=== PATIENT | female | born 1955 | race Caucasian/White ===

== ENCOUNTER → 2021-04-16 10:50 | Outpatient (CLI) | payer OTHER, SELFPAY ==
[2021-04-16 10:57] LABS: Bacteria Urine None Seen; WBC Urine None Seen (0-5/HPF)
[2021-04-16 11:13] LABS: Hematocrit 44.1 % (36-46); Hemoglobin 14.5 g/dL (12.0-16.0); Mean Corpuscular HGB Conc 32.8 % (30-36); Mean Corpuscular Hemoglobin 30.8 PG (26-34); Mean Corpuscular Volume 93.8 fL (80-100); Platelet Count 132 X10^3/uL (150-400); Red Cell Distribution Width 13.9 % (11.6-14.8); White Blood Cell Count 4.9 X10^3/uL (4.5-11.0)
[2021-04-16 11:15] LABS: Appearance Urine UA CLEAR; Bilirubin Urine UA NEGATIVE (NEGATIVE); Color Urine UA YELLOW; Glucose Urine UA NEGATIVE (Negative); Ketones Urine UA NEGATIVE (NEGATIVE); Leukocyte Esterase Urine UA NEGATIVE (NEGATIVE); Nitrite Urine UA NEGATIVE (Negative); Occult Blood Urine UA 1+ (Negative); Protein Urine UA NEGATIVE (Negative); Specific Gravity Urine UA <=1.005 (1.000-1.035); Urobilinogen Urine UA 0.2 E.U./dL (0.2)
[2021-04-16 11:28] LABS: Alanine Aminotransferase 18 IU/L (<35); Albumin 4.4 g/dL (3.5-5.0); Albumin Globulin Ratio 1.7 (1.0-2.8); Alkaline Phosphatase 46 U/L (38-126); Aspartate Aminotransferase 25 IU/L (14-36); BUN Creatinine Ratio 26.9 (6-22); Bilirubin Total 1.1 mg/dL (0.2-1.3); Blood Urea Nitrogen 14 mg/dL (7-17); Calcium 9.4 mg/dL (8.4-10.2); Carbon Dioxide 27 mmol/L (22-32); Chloride 105 mmol/L (98-107); Cholesterol 258 mg/dL (140-199); Estimated Glomerular Filt Rate > 60.0 mL/min (>60); Globulin 2.6 g/dL (1.7-4.1); Glucose 97 mg/dL (80-110); HDL Cholesterol 93 mg/dL (40-60); HEMOLYSIS < 15 (0-50); LDL Cholesterol Calculated 144 mg/dL (<100); Potassium 4.2 mmol/L (3.4-5.1); Sodium 137 mmol/L (137-145); Triglycerides 106 mg/dL (35-150)
[2021-04-16 11:37] LABS: Amorphous Sediment Urine 1+; Culture Indicated Urine Cult Not Indicated; RBC Urine 0-1/HPF (0-5/HPF)
[2021-04-16 12:34] LABS: TSH w/ Reflex to FT4 1.25 uIU/mL (0.47-4.68)
[2021-04-17 18:36] LABS: SS A Ro Sjogrens Antibody < 0.2 AI (0.0-0.9); SS B La Sjogrens Antibody < 0.2 AI (0.0-0.9)
== END ==
PROVIDERS: PCP Registered Nurse Diabetes Educator; Referring Provider Registered Nurse Diabetes Educator; Visit Provider Registered Nurse Diabetes Educator
DX: Z00.00 Encounter for general adult medical examination without abnormal findings (principal); R68.2 Dry mouth, unspecified; R30.0 Dysuria
CPT/HCPCS: 36415; 80053; 80061; 81001; 84443; 85027; 86235

== ENCOUNTER → 2021-04-25 10:34 | Outpatient (CLI) | payer OTHER, SELFPAY ==
[2021-04-28 10:16] LABS: H. Pylori Antigen Stool Negative (Negative)
== END ==
PROVIDERS: PCP Registered Nurse Diabetes Educator; Referring Provider Registered Nurse Diabetes Educator; Visit Provider Registered Nurse Diabetes Educator
DX: R10.13 Epigastric pain (principal)
CPT/HCPCS: 87338

== ENCOUNTER → 2021-06-04 11:22 | Outpatient (CLI) | payer OTHER, SELFPAY ==
[2021-06-05 14:36] LABS: Interpretation Negative (Negative)
== END ==
PROVIDERS: PCP Registered Nurse Diabetes Educator; Referring Provider Registered Nurse Diabetes Educator; Visit Provider Registered Nurse Diabetes Educator
DX: R10.13 Epigastric pain (principal)
CPT/HCPCS: 83013

== ENCOUNTER → 2021-09-30 15:06 | Outpatient (CLI) | payer OTHER, SELFPAY ==
--- NOTE | 2021-09-30 15:08 | DI.MG.S_ITS ---
BILATERAL DIGITAL SCREENING MAMMOGRAM 3D/2D WITH CAD: 09/30/2021 CLINICAL: Routine screening. Baseline exam. No prior exams were available for comparison. The tissue of both breasts is heterogeneously dense. This may lower the sensitivity of mammography. Current study was also evaluated with a Computer Aided Detection (CAD) system. No significant masses, calcifications, or other findings are seen in either breast. IMPRESSION: NEGATIVE There is no mammographic evidence of malignancy. A 1 year screening mammogram is recommended. This exam was interpreted at Station ID: [id number]. NOTE: For mammograms, a report in lay terms will be sent to the patient. Approximately 15% of breast malignancies will not be visualized mammographically. In the management of a palpable breast mass, a negative mammogram must not discourage biopsy of a clinically suspicious lesion. Electronically Signed By: Anderson solitario/philip:10/01/2021 07:44:53 letter sent: Normal Exam ACR BI-RADS Category 1: Negative 3341F
== END ==
PROVIDERS: PCP Registered Nurse Diabetes Educator; Referring Provider Registered Nurse Diabetes Educator; Visit Provider Registered Nurse Diabetes Educator
DX: Z12.31 Encounter for screening mammogram for malignant neoplasm of breast (principal)
CPT/HCPCS: 77063; 77067

== ENCOUNTER 2022-06-07 10:30 | Emergency (ER) | payer OTHER, SELFPAY ==
[2022-06-07 10:54] VITALS: BP 126/80; PULSE 80; RESP 16; TEMP 36.5; O2SAT 99; BMI 19.1
--- NOTE | 2022-06-07 11:01 | DI.RAD.S_ITS ---
PROCEDURE: XR LUMBAR SPINE 2-3V INDICATIONS: back pain TECHNIQUE: 3 views of the lumbar spine were acquired. COMPARISON: None. FINDINGS: Bones: 5 [id number] vertebrae are present. There is normal bony alignment. No vertebral body compression fractures. No suspicious bony lesions. The disc heights are well preserved. Facet arthropathy is seen, which is worst inferiorly. Soft tissues: Overlying bowel gas pattern is normal. No suspicious soft tissue calcifications. IMPRESSION: No acute abnormality is seen by plain film. Lower lumbar spine facet arthropathy is seen. If it would be helpful for clinical management decision making, please consider a dedicated, scheduled lumbar spine MRI for further evaluation (assuming that there is no contraindication). Dictated by: Eduardo Argueta M.D. on 06/07/2022 at 10:31 Approved by: Eduardo Argueta M.D. on 06/07/2022 at 10:32
[2022-06-07 12:47] LABS: Appearance Urine UA CLEAR; Bilirubin Urine UA NEGATIVE (NEGATIVE); Color Urine UA YELLOW; Glucose Urine UA NEGATIVE (Negative); Ketones Urine UA NEGATIVE (NEGATIVE); Leukocyte Esterase Urine UA 1+ (NEGATIVE); Nitrite Urine UA NEGATIVE (Negative); Occult Blood Urine UA TRACE-LYSED (Negative); Protein Urine UA NEGATIVE (Negative); Specific Gravity Urine UA <=1.005 (1.000-1.035); Urobilinogen Urine UA 0.2 E.U./dL (0.2)
[2022-06-07 13:01] LABS: RBC Urine None Seen (0-5/HPF); WBC Urine None Seen (0-5/HPF); pH Urine UA 5.5 (4.5-8.0)
[2022-06-07 13:02] LABS: Bacteria Urine None Seen; Culture Indicated Urine Specimen Cultured
--- NOTE | 2022-06-07 13:09 | ED_ITS ---
HPI - Back Pain/Injury <Brien Rene PA-C - Last Filed: 06/12/22 12:10> General Chief Complaint: Back Pain/Injury Stated Complaint: injured lower back on Time Seen by Provider: 06/07/22 12:04 Source: patient History of Present Illness HPI Narrative: Patient is a 66-year-old female who presents to the emergency room today with complaint of low back pain that started on . States she was lifting a 40 lb current corgi she was bending and hurt her back. Since the back pain is mostly on the left side but she can feel it across the entire low back area. Describes the pain as being a dull ache initially but has worsened now. States the pain is worse with bending and better with sitting in a chair reclining lifting her legs. States the pain at its worst is about a 10 in his best he is about a 7. Patient denies any urinary related concerns. Related Data Home Medications Medication Instructions Recorded Confirmed pantoprazole PO 06/11/22 06/11/22 Previous Rx's Medication Instructions Recorded conjugated estrogens 0.625 mg/gram 0.625 mg vaginal DAILY #30 grams 11/13/20 vaginal cream nitrofurantoin macrocrystal 100 mg 100 mg PO BID #10 caps 06/07/22 capsule cyclobenzaprine 10 mg tablet 5 mg PO BEDTIME PRN muscle spasm 06/11/22 #30 tabs meloxicam 7.5 mg tablet 7.5 mg PO BID PRN pain (scale 06/11/22 score 1-3) #30 tabs methocarbamol 750 mg tablet 750 mg PO Q6H PRN muscle spasm #30 06/11/22 tabs Allergies Allergy/AdvReac Type Severity Reaction Status Date / Time No Known Drug Allergies Allergy Verified 06/11/22 09:30 Review of Systems <Brien Rene PA-C - Last Filed: 06/12/22 12:10> Review of Systems Narrative: R.O.S.: General: No fever, chills or fatigue. Cardiovascular: No chest pain or palpitations Respiratory: No S.O.B. HEENT: No congestion, ear pain, rhinorrhea, sore throat or tinnitus Gastrointestinal: No nausea or vomiting : No urinary concerns Skin: No rash or associated abnormalities Musculoskeletal: Low back pain? Neurological: Awake, alert and in not apparent distress. No Headaches, changes in vision or other related neurological concerns. Patient History <Brien Rene PA-C - Last Filed: 06/12/22 12:10> Medical History Atrophic vulvovaginitis Elevated BP without diagnosis of hypertension Elevated LDL cholesterol level Hearing loss Helicobacter pylori (H. pylori) (~2015) Thrombocytopenia Thrombocytopenia Vision disorder Surgical History Anesthesia History of toe surgery (~2008) Family History Mother Hypertension Brother Cancer Hypertension Social History Smoking Status: Never smoker Smoking Status: Never smoker alcohol intake frequency: 0-2 drinks per day Substance Use Type: does not use Exam <Brien Rene PA-C - Last Filed: 06/12/22 12:10> Narrative Exam Narrative: Physical Exam: ? General: normal appearance, well developed, well nourished, alert, and awake. Not in acute distress. ? Head: Normocephalic, no lesions. Chest: Lungs CTAB, no rales, rhonchi or wheezes. ?? Heart: RRR, no murmurs, rubs or gallops. Eyes: PERRLA, EOM's full, conjunctivae clear. ? Neuro: Physiological, no localizing findings, CN3-12 intact. ?? Extremities: Warm, well perfused, FROM, no deformities, no edema. ? Back: Patient does not have any paraspinal tenderness in the cervical thoracic or lumbar spine. Patient has good tiptoe walk intact tandem walk good heel walk. Patient does however has complaint of tenderness palpating over her superior right and left gluteal areas. ? Skin: Normal, no rashes, no lesions noted. ?? PSYCHIATRIC: The mood is good, no blunted affect. Speech is clear. Thought process is linear, thought content is appropriate. The voice is without significant inflection. Gastrointestinal: Soft; NT; ND; Pos BS with Neg. rebound tenderness. No scars or major deformities noted on Visual Inspection. Initial Vital Signs Initial Vital Signs: Vital Signs Temperature 97.7 F 06/07/22 10:54 Pulse Rate 80 06/07/22 10:54 Respiratory Rate 16 06/07/22 10:54 Blood Pressure 126/80 06/07/22 10:54 Pulse Oximetry 99 06/07/22 10:54 Oxygen Delivery Method 06/07/22 10:54 <Alber Hernandez DO - Last Filed: 06/12/22 21:33> Initial Vital Signs Initial Vital Signs: Vital Signs Temperature 97.7 F 06/07/22 10:54 Pulse Rate 80 06/07/22 10:54 Respiratory Rate 16 06/07/22 10:54 Blood Pressure 126/80 06/07/22 10:54 Pulse Oximetry 99 06/07/22 10:54 Oxygen Delivery Method 06/07/22 10:54 Course <Brien Rene PA-C - Last Filed: 06/12/22 12:10> Orders Ordered: Discontinued Medications Ketorolac Tromethamine (Ketorolac 30 Mg/Ml Vial) 15 mg IM NOW ONE Stop: 06/07/22 13:24 Last Admin: 06/07/22 13:33 Dose: 15 mg Documented By: MAURICIO Vital Signs Vital signs: Vital Signs - 8 hr 06/07/22 10:54 Temperature 97.7 F Pulse Rate 80 Respiratory Rate 16 Blood Pressure 126/80 Pulse Oximetry 99 Oxygen Delivery Method Room Air <Alber Hernandez DO - Last Filed: 06/12/22 21:33> Orders Ordered: Discontinued Medications Ketorolac Tromethamine (Ketorolac 30 Mg/Ml Vial) 15 mg IM NOW ONE Stop: 06/07/22 13:24 Last Admin: 06/07/22 13:33 Dose: 15 mg Documented By: MAURICIO Vital Signs Vital signs: Vital Signs - 8 hr 06/07/22 10:54 Temperature 97.7 F Pulse Rate 80 Respiratory Rate 16 Blood Pressure 126/80 Pulse Oximetry 99 Oxygen Delivery Method Room Air MDM - Back Pain/Injury <Brien Rene PA-C - Last Filed: 06/12/22 12:10> Lab Data Labs: Lab Results 06/07/22 Range/Units 12:26 Urine Color Yellow Urine Appearance Clear Urine pH 5.5 (4.5-8.0) Ur Specific [place] <=1.005 (1.000-1.035) Urine Protein Negative (Negative) Urine Glucose (UA) Negative (Negative) g/dL Urine Ketones Negative (NEGATIVE) Urine Occult Blood Trace-lysed (Negative) Urine Nitrate Negative (Negative) Urine Bilirubin Negative (NEGATIVE) Urine Urobilinogen 0.2 (0.2) E.U./dL Ur Leukocyte Esterase 1+ H (NEGATIVE) Urine RBC None seen (0-5/HPF) Urine WBC None seen (0-5/HPF) Urine Bacteria None seen (None) Ur Culture Indicated? Specimen cultured Imaging Data Extremity x-ray #1: Radiologist's Impression: [address] [address] XRay Report Signed Patient: Bre River MR#: [id number] : 1955 Acct:[id number] Age/Sex: 66 / F Date of Service: 06/07/22 Loc: ED Accession Number: [id number] ?? Procedure: XR lumbar spine 2-3V Ordering Provider: Salina Pike D.O. PROCEDURE:? XR LUMBAR SPINE 2-3V ? INDICATIONS:? back pain ? TECHNIQUE:? 3 views of the lumbar spine were acquired.? ? COMPARISON:? None. ? FINDINGS:? ? Bones:? 5 dol-hmb-zbtgksq vertebrae are present.? There is normal bony alignment.? No vertebral body compression fractures.? No suspicious bony lesions.? ? The disc heights are well preserved.? Facet arthropathy is seen, which is worst inferiorly. ? Soft tissues:? Overlying bowel gas pattern is normal.? No suspicious soft tissue calcifications.? ? ? IMPRESSION:? No acute abnormality is seen by plain film. ? Lower lumbar spine facet arthropathy is seen. ? If it would be helpful for clinical management decision making, please consider a dedicated, scheduled lumbar spine MRI for further evaluation (assuming that there is no contraindication).? ? ? Dictated by: Eduardo Argueta M.D. on 06/07/2022 at 10:31 ? ? Approved by: Eduardo Argueta M.D. on 06/07/2022 at 10:32 ? MDM Narrative Medical decision making narrative: Presents to the emergency room complaint of back pain after lifting dog and had an incidental finding of a possible urinary tract infection. X-ray was negative for fracture. Toradol was administered in the emergency room and muscle relaxers and antibiotics were issued for the back pain and urinary tract infection. <Alber Hernandez DO - Last Filed: 06/12/22 21:33> Lab Data Labs: Lab Results 06/07/22 Range/Units 12:26 Urine Color Yellow Urine Appearance Clear Urine pH 5.5 (4.5-8.0) Ur Specific [place] <=1.005 (1.000-1.035) Urine Protein Negative (Negative) Urine Glucose (UA) Negative (Negative) g/dL Urine Ketones Negative (NEGATIVE) Urine Occult Blood Trace-lysed (Negative) Urine Nitrate Negative (Negative) Urine Bilirubin Negative (NEGATIVE) Urine Urobilinogen 0.2 (0.2) E.U./dL Ur Leukocyte Esterase 1+ H (NEGATIVE) Urine RBC None seen (0-5/HPF) Urine WBC None seen (0-5/HPF) Urine Bacteria None seen (None) Ur Culture Indicated? Specimen cultured Discharge Plan Departure Patient Disposition: Home Clinical Impression: Acute low back pain, Acute UTI Instructions: DI for Low Back Pain, DI for Urinary Tract Infection (UTI), DI for Back Strain or Sprain Activity Restrictions/Additional Instructions: *You have been diagnosed with acute low back pain status post lifting your dog and an incidental finding of a possible urinary tract infection. I have ordered and nonsteroidal anti-inflammatory medication for you received here in the emergency room and I suggested also trial [id number]-[id number]-[id number] ibuprofen or naproxen for your inflammatory condition. I have also ordered muscle relaxer for your back pain and antibiotics for urinary tract infection. Please return to the emergency room if any emergent concerns arise please report to primary care provider for any nonemergent concerns arise. [ ] *What to do: *Please continue to take your regular medications as directed. [x] New medication prescriptions sent to your pharmacy: [ ] [ ] New medication written as a paper prescription [ ] No new medications given *Please follow up with your primary care provider in 2-3 days, call for an appointment. Let them know you were seen in the Emergency Department and that we ask that you be seen in follow up. We will electronically transmit a record of today's note if your PCP is in our system *If you do not have a primary care provider please contact the [facility] Resource line at [phone]. They will ask some questions about your medical history and help get you set up with a doctor in the community. *Return to Emergency Department if you should have any new, worsening or concerning symptoms, such as [fever greater than 101 F, shaking chills, worsening pain, persistent vomiting or other bothersome symptoms] Prescriptions: New nitrofurantoin macrocrystal 100 mg capsule 100 mg PO BID Qty: 10 0RF Rx Instructions: must administer with a meal/food No Action conjugated estrogens 0.625 mg/gram cream 0.625 mg vaginal DAILY Qty: 30 0RF Rx Instructions: Use daily for two weeks and then change to twice weekly pantoprazole PO meloxicam 7.5 mg tablet 7.5 mg PO BID PRN (Reason: pain (scale score 1-3)) Qty: 30 1RF cyclobenzaprine 10 mg tablet 5 mg PO BEDTIME PRN (Reason: muscle spasm) Qty: 30 0RF Rx Instructions: If ineffective, may increase to 1 tab at bedtime as needed methocarbamol 750 mg tablet 750 mg PO Q6H PRN (Reason: muscle spasm) Qty: 30 2RF Rx Instructions: For daytime use Referrals: David Saavedra ARNP [Primary Care Provider] - Visit Report Forms: Patient Portal/API <Alber Hernandez DO - Last Filed: 06/12/22 21:33> Cosign ED Attending Cosignature Attestation: Dr Hernandez Co-Sign Statement: I was available for consultation during this patient's emergency department visit. This chart is signed by myself for administrative purposes only. I did not have direct contact with this patient during this visit. They were seen independently by the APC.
[2022-06-07] MEDS: KETOROLAC 30 MG/ML VIAL 15 MG IM (13:33)
[2022-06-07 14:22] VITALS: BP 149/75; PULSE 78; RESP 18; O2SAT 98
== END 2022-06-07 14:23 | disposition home or self-care (01) ==
PROVIDERS: Emergency Provider Physician Assistant; PCP Registered Nurse Diabetes Educator
DX: M54.50 Low back pain, unspecified (principal); N39.0 Urinary tract infection, site not specified; X50.0XXA Overexertion from strenuous movement or load, initial encounter
CPT/HCPCS: 72100; 81001; 87086; 96372; 99283; J1885

== ENCOUNTER → 2022-09-02 10:13 | Outpatient (CLI) | payer OTHER, SELFPAY ==
[2022-09-02 14:10] LABS: Hemoglobin 14.5 g/dL (12.0-16.0); Mean Corpuscular Hemoglobin 30.9 PG (26-34); Mean Corpuscular Volume 93.8 fL (80-100); Platelet Count 137 X10^3/uL (150-400); Red Blood Cell Count 4.69 X10^6/uL (4.0-5.2); Red Cell Distribution Width 13.7 % (11.6-14.8); White Blood Cell Count 4.3 X10^3/uL (4.5-11.0)
[2022-09-02 14:34] LABS: Alanine Aminotransferase 20 IU/L (<35); Albumin 4.2 g/dL (3.5-5.0); Albumin Globulin Ratio 1.5 (1.0-2.8); Alkaline Phosphatase 45 U/L (38-126); Aspartate Aminotransferase 23 IU/L (14-36); Blood Urea Nitrogen 15 mg/dL (7-17); Carbon Dioxide 28 mmol/L (22-32); Chloride 102 mmol/L (98-107); Cholesterol 263 mg/dL (140-199); Estimated Glomerular Filt Rate > 60 mL/min (>60); Globulin 2.8 g/dL (1.7-4.1); Glucose 78 mg/dL (80-110); HDL Cholesterol 83 mg/dL (40-60); HEMOLYSIS < 15 (0-50); LDL Cholesterol Calculated 167 mg/dL (<100); Magnesium 2.2 mg/dL (1.6-2.3); Sodium 138 mmol/L (137-145); Triglycerides 63 mg/dL (35-150)
[2022-09-02 15:22] LABS: Vitamin B12 Reflex MMA if <400 504 pg/mL (239-931)
== END ==
PROVIDERS: PCP Registered Nurse Diabetes Educator; Referring Provider Registered Nurse Diabetes Educator; Visit Provider Registered Nurse Diabetes Educator
DX: Z13.820 Encounter for screening for osteoporosis (principal); M81.0 Age-related osteoporosis without current pathological fracture; Z78.0 Asymptomatic menopausal state; D69.6 Thrombocytopenia, unspecified; E78.5 Hyperlipidemia, unspecified; Z51.81 Encounter for therapeutic drug level monitoring; Z79.899 Other long term (current) drug therapy
CPT/HCPCS: 36415; 77080; 80053; 80061; 82607; 83735; 85027

== ENCOUNTER → 2022-09-14 10:55 | Outpatient (CLI) | payer OTHER, SELFPAY ==
--- NOTE | 2022-09-14 10:57 | DI.RAD.S_ITS ---
PROCEDURE: XR CERVICAL SPINE 2V OR 3V INDICATIONS: eval neck pain TECHNIQUE: 3 view(s) of the cervical spine were acquired. COMPARISON: None. FINDINGS: Bones: No fractures or dislocations to the T1 level. The lateral masses of C1 appear intact on the odontoid view. Moderate degenerative change at C5-C6. No suspicious bony lesions. Soft tissues: Minimal prominence of the prevertebral soft tissues which could be due to positioning. IMPRESSION: Moderate degenerative change most pronounced at C5-C6. If clinically indicated consider MRI for further evaluation. Dictated by: Anderson Pulliam M.D. on 09/14/2022 at 12:32 Approved by: Anderson Pulliam M.D. on 09/14/2022 at 12:34
[2022-09-14 12:23] LABS: Hematocrit 44.3 % (36-46); Hemoglobin 14.9 g/dL (12.0-16.0); Mean Corpuscular HGB Conc 33.6 % (30-36); Mean Corpuscular Hemoglobin 31.1 PG (26-34); Mean Corpuscular Volume 92.5 fL (80-100); Platelet Count 136 X10^3/uL (150-400); Red Blood Cell Count 4.79 X10^6/uL (4.0-5.2); Red Cell Distribution Width 13.9 % (11.6-14.8); White Blood Cell Count 4.9 X10^3/uL (4.5-11.0)
[2022-09-14 12:44] LABS: Alanine Aminotransferase 20 IU/L (<35); Albumin 4.3 g/dL (3.5-5.0); Albumin Globulin Ratio 1.4 (1.0-2.8); Alkaline Phosphatase 50 U/L (38-126); Aspartate Aminotransferase 26 IU/L (14-36); Bilirubin Total 1.1 mg/dL (0.2-1.3); Blood Urea Nitrogen 14 mg/dL (7-17); Calcium 9.1 mg/dL (8.4-10.2); Carbon Dioxide 26 mmol/L (22-32); Chloride 103 mmol/L (98-107); Cholesterol 273 mg/dL (140-199); Estimated Glomerular Filt Rate > 60 mL/min (>60); Glucose 94 mg/dL (80-110); HDL Cholesterol 90 mg/dL (40-60); HEMOLYSIS 20 (0-50); LDL Cholesterol Calculated 166 mg/dL (<100); Potassium 3.9 mmol/L (3.4-5.1); Sodium 138 mmol/L (137-145); Total Protein 7.3 g/dL (6.3-8.2); Triglycerides 86 mg/dL (35-150)
[2022-09-14 13:25] LABS: TSH w/ Reflex to FT4 0.81 uIU/mL (0.47-4.68)
[2022-09-14 16:48] LABS: Vitamin D 25 Hydroxy (D3) 32.5 ng/mL (30.0-100.0)
== END ==
PROVIDERS: PCP Registered Nurse Diabetes Educator; Referring Provider Registered Nurse Diabetes Educator; Visit Provider Registered Nurse Diabetes Educator
DX: M47.812 Spondylosis without myelopathy or radiculopathy, cervical region (principal); M54.2 Cervicalgia; E78.00 Pure hypercholesterolemia, unspecified; M81.0 Age-related osteoporosis without current pathological fracture; D69.6 Thrombocytopenia, unspecified; R03.0 Elevated blood-pressure reading, without diagnosis of hypertension
CPT/HCPCS: 36415; 72040; 80053; 80061; 82306; 84443; 85027

== ENCOUNTER → 2022-12-18 09:58 | Outpatient (CLI) | payer OTHER, SELFPAY ==
[2022-12-21 14:36] LABS: Fecal Immunochemical Test Negative (Negative)
== END ==
PROVIDERS: PCP Registered Nurse Diabetes Educator; Referring Provider Registered Nurse Diabetes Educator; Visit Provider Registered Nurse Diabetes Educator
DX: K92.1 Melena (principal); Z12.11 Encounter for screening for malignant neoplasm of colon
CPT/HCPCS: 82274

== ENCOUNTER → 2023-07-27 10:57 | Outpatient (CLI) | payer OTHER, SELFPAY ==
--- NOTE | 2023-07-27 10:58 | DI.MG.S_ITS ---
BILATERAL DIGITAL SCREENING MAMMOGRAM 3D/2D WITH CAD: 07/27/2023 CLINICAL: Routine screening. Comparison is made to exam dated: 09/30/2021 mammogram - [facility]. Both breasts are heterogeneously dense, which may obscure small masses (category c / 51-75% glandular tissue). Current study was also evaluated with a Computer Aided Detection (CAD) system. No significant masses, calcifications, or other findings are seen in either breast. There has been no significant interval change. IMPRESSION: NEGATIVE There is no mammographic evidence of malignancy. A 1 year screening mammogram is recommended. Based on the Tyrer Cuzick model (a risk assessment model) the patient's lifetime risk is 10.2% and her 10 year risk is 5.4%. According to the ACR, ACS, and NCCN guidelines, an annual breast MRI exam along with mammogram is recommended if the patient's lifetime risk is 20% or greater. This exam was interpreted at Station ID: [id number]. NOTE: For mammograms, a report in lay terms will be sent to the patient. Approximately 15% of breast malignancies will not be visualized mammographically. In the management of a palpable breast mass, a negative mammogram must not discourage biopsy of a clinically suspicious lesion. Electronically Signed By: Anderson solitario/philip:07/27/2023 13:32:43 letter sent: Normal Exam ACR BI-RADS Category 1: Negative 3341F
--- NOTE | 2023-07-27 11:15 | DI.RAD.S_ITS ---
Bone Density Report Name: ANIBAL ZHANG Age: 67 Sex: Female Ethnicity: White Date of : 1955 Indication: postmenopausal osteoporosis; monitoring treatment; Referring Provider: ROBERT SANTANA Study: Bone densitometry was performed. Exam Date: July 27, 2023 Accession number: [id number] Bone Density: Region BMD T-score Z-score Classification AP Spine(L1-L4) 0.736 -2.8 -0.9 Osteoporosis Femoral Neck (Left) 0.526 -2.9 -1.3 Osteoporosis Total Hip (Left) 0.697 -2.0 -0.6 Osteopenia Femoral Neck (Right) 0.576 -2.5 -0.8 Osteoporosis Total Hip (Right) 0.697 -2.0 -0.6 Osteopenia Total Hip Mean 0.697 -2.0 -0.6 Osteopenia World Health Organization criteria for BMD impression classify patients as: Normal (T-score at or above -1.0), Osteopenia (T-score between -1.0 and -2.5), or Osteoporosis (T-score at or below -2.5). 10-year Fracture Risk: FRAX not reported because: Some T-score for Spine Total or Hip Total or Femoral Neck at or below -2.5 Treated for osteoporosis Previous Exams: -- Region Exam Age BMD T-score BMD Change BMD Change Date g/cm2 vs Baseline vs Previous -- AP Spine (L1-L4) 07/27/2023 67 0.736 -2.8 0.004 (0.5%) 0.004 (0.5%) 09/02/2022 66 0.732 -2.9 Total Hip(Left) 07/27/2023 67 0.697 -2.0 -0.015 (-2.1%) -0.015 (-2.1%) 09/02/2022 66 0.712 -1.9 Total Hip(Right) 07/27/2023 67 0.697 -2.0 -0.015 (-2.1%) -0.015 (-2.1%) 09/02/2022 66 0.712 -1.9 -- *Denotes significance at 95% confidence level, LSC for AP Spine = 0.022 g/cm2, LSC for Total Hip = 0.027 g/cm2 Impression: The patient has osteoporosis, based on the Left Femoral Neck T-score. No significant bone loss was observed. Discussion: PATIENT UNDER TREATMENT WITH NO SIGNIFICANT BMD LOSS SINCE LAST EXAM. In an untreated patient, BMD typically declines with age. A lack of decline or gain is usually a sign that treatment is efficacious and fracture risk is reduced. It is important to ask patients whether they are taking their medications and to encourage continued and appropriate compliance with their osteoporosis therapies to reduce fracture risk. It is also important to review their risk factors and encourage appropriate calcium and vitamin D intakes, exercise, fall prevention and other lifestyle measures. Follow-Up: Consider a repeat BMD and Vertebral Fracture Assessment (VFA) exam in 2 years or sooner if medically necessary, to reassess this patient's status. Reported by: [facility] M.D. on 07/27/2023 12:05:00 PM.
== END ==
PROVIDERS: PCP Registered Nurse Diabetes Educator; Referring Provider Registered Nurse Diabetes Educator; Visit Provider Registered Nurse Diabetes Educator
DX: Z12.31 Encounter for screening mammogram for malignant neoplasm of breast (principal); M81.0 Age-related osteoporosis without current pathological fracture; Z79.83 Long term (current) use of bisphosphonates; Z78.0 Asymptomatic menopausal state
CPT/HCPCS: 77063; 77067; 77080

== ENCOUNTER → 2023-09-17 08:18 | Outpatient (CLI) | payer OTHER, SELFPAY ==
[2023-09-17 09:41] LABS: Hematocrit 43.5 % (36-46); Hemoglobin 14.7 g/dL (12.0-16.0); Mean Corpuscular HGB Conc 33.9 % (30-36); Mean Corpuscular Hemoglobin 31.6 PG (26-34); Mean Corpuscular Volume 93.3 fL (80-100); Platelet Count 150 X10^3/uL (150-400); Red Blood Cell Count 4.66 X10^6/uL (4.0-5.2); Red Cell Distribution Width 13.9 % (11.6-14.8); White Blood Cell Count 3.8 X10^3/uL (4.5-11.0)
[2023-09-17 10:14] LABS: Alanine Aminotransferase 20 IU/L (<35); Albumin Globulin Ratio 1.4 (1.0-2.8); Alkaline Phosphatase 45 U/L (38-126); Aspartate Aminotransferase 23 IU/L (14-36); BUN Creatinine Ratio 28.8 (6-22); Bilirubin Total 0.9 mg/dL (0.2-1.3); Blood Urea Nitrogen 19 mg/dL (7-17); Calcium 9.2 mg/dL (8.4-10.2); Carbon Dioxide 29 mmol/L (22-32); Chloride 103 mmol/L (98-107); Cholesterol 264 mg/dL (140-199); Estimated Glomerular Filt Rate > 60 mL/min (>60); Globulin 2.8 g/dL (1.7-4.1); Glucose 93 mg/dL (80-110); HDL Cholesterol 85 mg/dL (40-60); HEMOLYSIS < 15 (0-50); LDL Cholesterol Calculated 167 mg/dL (<100); Potassium 4.4 mmol/L (3.4-5.1); Sodium 135 mmol/L (137-145); Total Protein 6.8 g/dL (6.3-8.2); Triglycerides 60 mg/dL (35-150)
[2023-09-17 11:18] LABS: Vitamin D 25 Hydroxy (D3) 31.6 ng/mL (30.0-100.0)
== END ==
PROVIDERS: PCP Registered Nurse Diabetes Educator; Referring Provider Registered Nurse Diabetes Educator; Visit Provider Registered Nurse Diabetes Educator
DX: E78.5 Hyperlipidemia, unspecified (principal); M81.0 Age-related osteoporosis without current pathological fracture; D69.6 Thrombocytopenia, unspecified
CPT/HCPCS: 36415; 80053; 80061; 82306; 85027

== ENCOUNTER → 2024-02-01 11:42 | Outpatient (CLI) | payer OTHER, SELFPAY ==
--- NOTE | 2024-02-01 11:45 | DI.RAD.S_ITS ---
PROCEDURE: XR CHEST 2V INDICATIONS: Persistent cough TECHNIQUE: 2 views of the chest were acquired. COMPARISON: None. FINDINGS: Surgical changes and devices: None. Lungs and pleura: Lungs are clear. No pleural effusions or pneumothorax. Peribronchial cuffing. Mediastinum: Mediastinal contours are normal. Heart size is normal. Bones and chest wall: No suspicious bony abnormalities. Soft tissues appear unremarkable. IMPRESSION: Peribronchial cuffing, typically indicating infectious or inflammatory bronchitis. Dictated by: Scott Cole M.D. on 02/01/2024 at 13:54 Approved by: Scott Cole M.D. on 02/01/2024 at 13:54
== END ==
PROVIDERS: PCP Registered Nurse Diabetes Educator; Referring Provider Physician Assistant; Visit Provider Physician Assistant
DX: R05.9 Cough, unspecified (principal)
CPT/HCPCS: 71046

== ENCOUNTER → 2024-08-25 10:54 | Outpatient (CLI) | payer OTHER, SELFPAY ==
--- NOTE | 2024-08-25 10:55 | DI.MG.S_ITS ---
BILATERAL DIGITAL SCREENING MAMMOGRAM 3D/2D WITH CAD: 08/25/2024 CLINICAL: Routine screening. Comparison is made to exams dated: 07/27/2023 mammogram and 09/30/2021 mammogram - [facility]. The breasts are heterogeneously dense, which may obscure small masses (category c / 51-75% glandular tissue). Current study was also evaluated with a Computer Aided Detection (CAD) system. No significant masses, calcifications, or other findings are seen in either breast. There has been no significant interval change. IMPRESSION: NEGATIVE There is no mammographic evidence of malignancy. A 1 year screening mammogram is recommended. Based on the Tyrer Cuzick model (a risk assessment model) the patient's lifetime risk is 9.7% and her 10 year risk is 5.4%. According to the ACR, ACS, and NCCN guidelines, an annual breast MRI exam along with mammogram is recommended if the patient's lifetime risk is 20% or greater. This exam was interpreted at Station ID: [id number]. NOTE: For mammograms, a report in lay terms will be sent to the patient. Approximately 15% of breast malignancies will not be visualized mammographically. In the management of a palpable breast mass, a negative mammogram must not discourage biopsy of a clinically suspicious lesion. Electronically Signed By: Anderson solitario/philip:08/25/2024 12:45:54 letter sent: Normal Exam ACR BI-RADS Category 1: Negative
== END ==
PROVIDERS: PCP Registered Nurse Diabetes Educator; Referring Provider Registered Nurse Diabetes Educator; Visit Provider Registered Nurse Diabetes Educator
DX: Z12.31 Encounter for screening mammogram for malignant neoplasm of breast (principal); R92.333 Mammographic heterogeneous density, bilateral breasts
CPT/HCPCS: 77063; 77067

== ENCOUNTER → 2024-09-20 10:40 | Outpatient (CLI) | payer OTHER, SELFPAY ==
[2024-09-20 11:24] LABS: Hematocrit 46.2 % (36-46); Hemoglobin 15.3 g/dL (12.0-16.0); Mean Corpuscular HGB Conc 33.1 % (30-36); Mean Corpuscular Hemoglobin 31.5 PG (26-34); Platelet Count 166 X10^3/uL (150-400); Red Blood Cell Count 4.86 X10^6/uL (4.0-5.2); Red Cell Distribution Width 13.9 % (11.6-14.8); White Blood Cell Count 4.6 X10^3/uL (4.5-11.0)
[2024-09-20 11:42] LABS: Alanine Aminotransferase 31 IU/L (<35); Albumin 4.6 g/dL (3.5-5.0); Albumin Globulin Ratio 1.9 (1.0-2.8); Alkaline Phosphatase 53 U/L (38-126); Aspartate Aminotransferase 31 IU/L (14-36); BUN Creatinine Ratio 23.2 (6-22); Bilirubin Total 1.4 mg/dL (0.2-1.3); Blood Urea Nitrogen 16 mg/dL (7-17); Calcium 9.6 mg/dL (8.4-10.2); Carbon Dioxide 25 mmol/L (22-32); Chloride 105 mmol/L (98-107); Cholesterol 301 mg/dL (140-199); Estimated Glomerular Filt Rate > 60 mL/min (>60); Globulin 2.4 g/dL (1.7-4.1); Glucose 95 mg/dL (80-110); HDL Cholesterol 107 mg/dL (40-60); HEMOLYSIS < 15 (0-50); LDL Cholesterol Calculated 179 mg/dL (<100); Potassium 4.4 mmol/L (3.4-5.1); Sodium 136 mmol/L (137-145); Triglycerides 73 mg/dL (35-150)
[2024-09-20 11:59] LABS: Vitamin D 25 Hydroxy (D3) 34.5 ng/mL (30.0-100.0)
[2024-09-20 12:30] LABS: Vitamin B12 709 pg/mL (239-931)
== END ==
PROVIDERS: PCP Registered Nurse Diabetes Educator; Referring Provider Registered Nurse Diabetes Educator; Visit Provider Registered Nurse Diabetes Educator
DX: M81.0 Age-related osteoporosis without current pathological fracture (principal); Z79.899 Other long term (current) drug therapy; E78.5 Hyperlipidemia, unspecified; Z51.81 Encounter for therapeutic drug level monitoring; D72.819 Decreased white blood cell count, unspecified; E87.1 Hypo-osmolality and hyponatremia
CPT/HCPCS: 36415; 80053; 80061; 82306; 82607; 83735; 85027

== ENCOUNTER 2025-05-05 10:43 | Emergency (ER) | payer OTHER, SELFPAY ==
[2025-05-05 10:49] VITALS: BP 160/79; PULSE 79; RESP 14; TEMP 36.1; O2SAT 97; BMI 19.3
[2025-05-05 11:09] VITALS: BP 150/79; PULSE 83; O2SAT 95
[2025-05-05 11:11] VITALS: BP 150/79; PULSE 76; O2SAT 94
--- NOTE | 2025-05-05 11:27 | ED.URI ---
HPI - URI/Sore Throat General Chief Complaint: Upper Respiratory Symptoms Stated Complaint: Ongoing cold and cough-not going away 3wks Time Seen by Provider: 05/05/25 10:47 Source: patient Mode of arrival: Ambulatory History of Present Illness HPI Narrative: 69-year-old female presents with nonproductive cough x3 weeks unrelieved with chicken soup and OTC meds. She is up-to-date on her shots. She does not recall any sick contacts other than her who had similar complaints and was seen and treated for pneumonia and also came back from a flight from [place] most recently. Patient denies chest pain, fever, chills, body aches, sore throat, nausea, vomiting, diarrhea. Other than what is stated 14 point review of system is negative. Related Data Home Medications ?Medication ?Instructions ?Recorded ?Confirmed Deflam+ PO 12/30/22 09/25/24 bone up PO 12/30/22 09/25/24 cbd roll on transdermal 12/30/22 09/25/24 magnesium citrate 100 mg tablet 100 mg PO DAILY 12/30/22 09/25/24 microbiome pro PO 12/30/22 09/25/24 multivitamin (Super Multivitamin 1 tab PO DAILY 12/30/22 09/25/24 tablet) omega 2-vqu-psy-fish oil 100 cap PO 12/30/22 09/25/24 mg-160 mg-1,000 mg capsule (Fish Oil) Previous Rx's ?Medication ?Instructions ?Recorded epinephrine 0.3 mg/0.3 mL 0.3 mg (0.3 mL) IM ONCE PRN 04/04/24 injection, auto-injector (EpiPen) anaphylaxis #2 ea pantoprazole 20 mg tablet,delayed 20 mg PO DAILY #90 tabs 02/12/25 release amoxicillin 875 mg-potassium 1 tab PO Q12H #14 tabs 05/05/25 clavulanate 125 mg tablet azithromycin 250 mg tablet 250 mg PO DAILY 4 days #4 tabs 05/05/25 Allergies Allergy/AdvReac Type Severity Reaction Status Date / Time Fire ants Allergy Severe Swelling Uncoded 05/05/25 10:49 of Lip/Tongue/Throat Review of Systems Review of Systems ROS Unobtainable: All systems reviewed & are unremarkable except as noted in HPI and below Patient History Medical History Osteoporosis Chronic GERD Dyslipidemia Osteopenia Elevated BP without diagnosis of hypertension Elevated LDL cholesterol level Thrombocytopenia Vision disorder Hearing loss Helicobacter pylori (H. pylori) (~2015) Thrombocytopenia Atrophic vulvovaginitis Surgical History Anesthesia History of toe surgery (~2008) Family History Mother Hypertension Brother Cancer Hypertension Social History Smoking Status: Unknown if ever smoked Smoking Status: Unknown if ever smoked alcohol intake frequency: 0-2 drinks per day Exam Narrative Exam Narrative: GENERAL: [69] year old patient appears stated age. Well-developed patient, in mild distress. HEAD: Atraumatic. Normocephalic. EYES: Pupils equal round and reactive. Extraocular motions intact. No scleral icterus. No injection or drainage. ENT: Nose without bleeding, purulent drainage. Throat without erythema, tonsillar hypertrophy or exudate. Airway patent. NECK: Trachea midline. Non tender CARDIOVASCULAR: Regular rate and rhythm without murmurs, gallops, or rubs. RESPIRATORY: Coarse rhonchi base right GASTROINTESTINAL: Abdomen soft, non-tender, nondistended. EXTREMITIES: No edema or joint tenderness. BACK: Nontender without deformity or crepitance. No flank tenderness. NEURO: AOx3. SKIN: No rash or erythema of visible areas Initial Vital Signs Initial Vital Signs: Vital Signs Temperature 97.0 F L 05/05/25 10:49 Pulse Rate 79 05/05/25 10:49 Respiratory Rate 14 05/05/25 10:49 Blood Pressure 160/79 H 05/05/25 10:49 Pulse Oximetry 97 05/05/25 10:49 Oxygen Delivery Method Room Air 05/05/25 10:49 Course Orders Ordered: ED Orders 05/05/25 11:33 CXR [XR chest 2V] Stat 05/05/25 11:40 Covid-19 + FLU A/B + RSV - PCR Stat Vital Signs Vital signs: Vital Signs - 8 hr 05/05/25 10:49 05/05/25 11:09 05/05/25 11:11 Temperature 97.0 F L Pulse Rate 79 83 76 Respiratory Rate 14 Blood Pressure 160/79 H 150/79 H Pulse Oximetry 97 95 94 Oxygen Delivery Method Room Air 05/05/25 11:11 05/05/25 11:30 05/05/25 11:30 Temperature Pulse Rate 81 Respiratory Rate Blood Pressure 150/79 H 146/74 H Pulse Oximetry 96 Oxygen Delivery Method 05/05/25 12:00 05/05/25 12:30 Temperature Pulse Rate 74 63 Respiratory Rate Blood Pressure Pulse Oximetry 96 95 Oxygen Delivery Method MDM - URI/Sore Throat Lab Data Labs: Lab Results 05/05/25 Range/Units 11:40 SARS-CoV-2 (PCR) Negative (Negative) Influenza A (RT-PCR) Flu a negative (NEGATIVE) Influenza B (RT-PCR) Flu b negative (NEGATIVE) RSV (PCR) Negative (Negative) Imaging Data Chest x-ray: Radiologist's Impression: [address] [address] XRay Report Signed Patient: Bre River MR#: [id number] : 1955 Acct:[id number] Age/Sex: 69 / F Date of Service: 05/05/25 Loc: ED Accession Number: [id number] Procedure: XR chest 2V Ordering Provider: Artur Cuevas D.O. PROCEDURE: XR CHEST 2V INDICATIONS: cough x 3 weeks TECHNIQUE: 2 views of the chest were acquired. COMPARISON: [facility], , XR CHEST 2V, 02/01/2024, 11:51. FINDINGS: Surgical changes and devices: None. Lungs and pleura: Lungs are clear. No pleural effusions or pneumothorax. Mediastinum: Mediastinal contours are normal. Heart size is normal. Bones and chest wall: No suspicious bony abnormalities. Soft tissues appear unremarkable. IMPRESSION: No acute cardiopulmonary abnormality is seen. [facility] Narrative Medical decision making narrative: Vital signs nurse triage note medication list previous ER visits in all imaging studies reviewed. Chest x-ray showed no acute process COVID flu RSV is negative but I am still concerned she has underlying pneumonia being dehydrated at this time we will cover her for pneumonia with Augmentin Z-Yusuf. Return with new or worsening symptoms. Differential diagnosis includes COVID flu RSV pneumonia. Discharge Plan Departure Patient Disposition: Home Clinical Impression: Pneumonia Qualifiers: Pneumonia type: due to Pneumococcus Laterality: right Lung location: lower lobe of lung Qualified Code(s): J13 - Pneumonia due to Streptococcus pneumoniae Instructions: DI for Pneumonia -- Adult Activity Restrictions/Additional Instructions: Return with new or worsening symptoms. Take your medicines directed. Follow up with PCP in 1-2 weeks if no improvement in symptoms. Prescriptions: New amoxicillin-pot clavulanate 875-125 mg tablet 1 tab PO Q12H Qty: 14 0RF azithromycin 250 mg tablet 250 mg PO DAILY 4 Days Qty: 4 0RF Rx Instructions: start on day 2 of therapy No Action epinephrine [EpiPen] 0.3 mg/0.3 mL auto-injector 0.3 mg IM ONCE PRN (Reason: anaphylaxis) Qty: 2 0RF Rx Instructions: as a single dose; may repeat once pantoprazole 20 mg tablet,delayed release (DR/EC) 20 mg PO DAILY Qty: 90 1RF bone up PO magnesium citrate 100 mg tablet 100 mg PO DAILY Fish Oil 100-160-1,000 mg capsule PO multivitamin [Super Multivitamin] Tablet 1 tab PO DAILY microbiome pro PO cbd roll on transdermal Deflam+ PO Referrals: David Saavedra ARNP [Primary Care Provider, Medical] Stand Alone Forms: Patient Portal/API
[2025-05-05 11:30] VITALS: BP 146/74; PULSE 81; O2SAT 96
--- NOTE | 2025-05-05 11:33 | DI.RAD.S_ITS ---
PROCEDURE: XR CHEST 2V INDICATIONS: cough x 3 weeks TECHNIQUE: 2 views of the chest were acquired. COMPARISON: [facility], CR, XR CHEST 2V, 02/01/2024, 11:51. FINDINGS: Surgical changes and devices: None. Lungs and pleura: Lungs are clear. No pleural effusions or pneumothorax. Mediastinum: Mediastinal contours are normal. Heart size is normal. Bones and chest wall: No suspicious bony abnormalities. Soft tissues appear unremarkable. IMPRESSION: No acute cardiopulmonary abnormality is seen. Dictated by: Kristin Estevez M.D. on 05/05/2025 at 11:24 Approved by: Kristin Estevez M.D. on 05/05/2025 at 11:24
[2025-05-05 12:00] VITALS: PULSE 74; O2SAT 96
[2025-05-05 12:25] LABS: COVID-19 CEPHEID 4-PLEX PCR Negative (Negative); Influenza A - CEPHEID Flu A NEGATIVE (NEGATIVE); Influenza B - CEPHEID Flu B NEGATIVE (NEGATIVE)
[2025-05-05 12:30] VITALS: PULSE 63; O2SAT 95
[2025-05-05] MEDS: AZITHROMYCIN 250 MG TABLET 500 MG PO (13:28)
[2025-05-05] MEDS: AMOXICILLIN/CLAV 875/125 MG 1 TAB PO (13:29)
== END 2025-05-05 13:33 | disposition home or self-care (01) ==
PROVIDERS: Emergency Provider Family Medicine; PCP Registered Nurse Diabetes Educator
DX: J13 Pneumonia due to Streptococcus pneumoniae (principal)
CPT/HCPCS: 71046; 87637; 99283